=== PATIENT | female | born 1950 | race Caucasian/White ===

== ENCOUNTER → 2020-12-29 | Day surgery (SDC) | payer MEDICARE, OTHER ==
[~2020-12-29] MED LIST: ADVAIR 100-501 EACH INH; CALCITRIOL MC; CLOPIDOGREL75 MG PO; FAMOTIDINE20 MG PO; HIZENTRA10 GM/50 M SQ; KLONOPIN0.5 MG PO; LOPERAMIDE2 M1 PO; NORVASC5 MG PO; PROAIR DIGIHAL90 MCG PO; SINGULAIR10 MG PO; TOPROL XL25 MG PO; TYLENOL EXTRA500 MG PO
== END | disposition home or self-care (01) ==
LOC: OR 07:43
DX: K29.51 Unspecified chronic gastritis with bleeding (principal); K74.60 Unspecified cirrhosis of liver; K76.6 Portal hypertension; K31.89 Other diseases of stomach and duodenum; K57.30 Diverticulosis of large intestine without perforation or abscess without bleeding; K64.0 First degree hemorrhoids; I86.8 Varicose veins of other specified sites; K52.9 Noninfective gastroenteritis and colitis, unspecified; R16.1 Splenomegaly, not elsewhere classified; D83.9 Common variable immunodeficiency, unspecified; D45 Polycythemia vera; I12.9 Hypertensive chronic kidney disease with stage 1 through stage 4 chronic kidney disease, or unspecified chronic kidney disease; N18.30 Chronic kidney disease, stage 3 unspecified; J45.909 Unspecified asthma, uncomplicated; F32.9 Major depressive disorder, single episode, unspecified; Z86.010 Personal history of colon polyps; Z88.2 Allergy status to sulfonamides; Z88.6 Allergy status to analgesic agent; Z88.8 Allergy status to other drugs, medicaments and biological substances; Z79.02 Long term (current) use of antithrombotics/antiplatelets; Z79.899 Other long term (current) drug therapy
CPT/HCPCS: J2704; J7040